=== PATIENT | female | born 1975 | race Two or more races ===

== ENCOUNTER 2017-06-28 04:51 | Emergency (ER) | payer OTHER ==
[~2017-06-28] VITALS: Ht 157.5 cm; Wt 66.0 kg
[2017-06-28] MEDS ORDERED: SODIUM CHLORIDE 0.9% 1,000 ML IV ONE (06:57)
[2017-06-28] MEDS ORDERED: ONDANSETRON HCL 4MG/2ML VIAL IV STA (06:57)
[2017-06-28] MEDS ORDERED: MORPHINE SULFATE 4 MG/ML CPJ (NOT FOR IM USE) IV STA (06:57)
[2017-06-28] MEDS ORDERED: DEXAMETHASONE 10MG/ML 1ML VIAL IV ONE (07:00)
[2017-06-28 08:55] VITALS: BP 121/66
== END 2017-06-28 08:55 | disposition home or self-care (01) ==
LOC: ER 04:52
DX: R51 Headache (principal); I10 Essential (primary) hypertension; R11.0 Nausea
CPT/HCPCS: 81025; 96361; 96374; 96375; 99284; J1100; J2270; J2405; Z7610; J7030

== ENCOUNTER 2018-11-07 23:11 | Emergency (ER) | payer OTHER ==
[~2018-11-07] VITALS: Ht 157.5 cm; Wt 70.0 kg
[2018-11-08 04:38] LABS: BASOPHILS % 1.1 % (0.0-2.0); EOSINOPHILS % 7.2 % (0.0-5.0); HEMATOCRIT. 41.6 % (36.0-48.0); HEMOGLOBIN. 14.4 g/dL (12.0-16.0); LYMPHOCYTES % 12.4 % (20.0-50.0); MEAN CORPUSCULAR VOLUME 86.7 fL (81.0-99.0); MEAN PLATELET VOLUME 8.5 fl (7.4-10.4); MONOCYTES % 7.2 % (2.0-8.0); NEUTROPHILS % 72.1 % (40.0-76.0); PLATELET 263 x1000/uL (130-400); RED CELL DISTRIBUTION WIDTH 13.2 % (11.6-14.6)
[2018-11-08 04:43] LABS: INR 1.1; PROTHROMBIN TIME 10.7 sec (9.1-11.1)
[2018-11-08 04:45] LABS: CHLORIDE 107 mEq/L (98-107)
[2018-11-08 05:16] VITALS: BP 114/71
== END 2018-11-08 06:15 | disposition home or self-care (01) ==
LOC: ER 23:11
DX: R07.89 Other chest pain (principal); F41.9 Anxiety disorder, unspecified; Z98.890 Other specified postprocedural states
CPT/HCPCS: 36415; 71045; 93005; 99284

== ENCOUNTER 2021-01-10 22:49 | Emergency (ER) | payer OTHER ==
[~2021-01-10] VITALS: Ht 160 cm; Wt 75.0 kg
[2021-01-10] MEDS ORDERED: ONDANSETRON HCL 4MG/2ML INJ IV STA (23:11)
[2021-01-10] MEDS ORDERED: KETOROLAC 30MG/ML VIAL IV STA (23:11)
[2021-01-10] MEDS ORDERED: SODIUM CHLORIDE 0.9% 1,000 ML IV ONE (23:15)
[2021-01-10] MEDS ORDERED: MECLIZINE 25MG TABLET PO ONE (23:15)
[2021-01-11 00:06] LABS: CHLORIDE 106 mEq/L (98-107); HEMATOCRIT. 44.2 % (36.0-48.0); HEMOGLOBIN. 14.7 g/dL (12.0-16.0); MEAN CORPUSCULAR VOLUME 87.5 fL (81.0-99.0); MEAN PLATELET VOLUME 8.5 fl (7.4-10.4); PLATELET 307 x1000/uL (130-400); RED BLOOD CELL COUNT 5.06 mill/uL (4.2-5.4); RED CELL DISTRIBUTION WIDTH 13.3 % (11.6-14.6)
[2021-01-11 00:36] LABS: HCG SCREEN NEGATIVE
[2021-01-11 03:03] VITALS: BP 134/76
[2021-01-11 04:59] LABS: PLATELET ESTIMATE NORMAL
== END 2021-01-11 03:05 | disposition home or self-care (01) ==
LOC: ER 23:18
DX: R07.89 Other chest pain (principal); E86.0 Dehydration; R42 Dizziness and giddiness; R11.10 Vomiting, unspecified
CPT/HCPCS: 36415; 70450; 71045; 72125; 80053; 83880; 84484; 84703; 85025; 93005; 96361; 96374; 96375; 99285; J1885; J2405; J7030; J8597; Z7610

== ENCOUNTER 2022-01-25 18:29 | Emergency (ER) | payer OTHER ==
[~2022-01-25] VITALS: Ht 160 cm; Wt 73.0 kg
[2022-01-25] MEDS ORDERED: MAGNESIUM/ALUMINUM HYDROXIDE/SIMETHICONE 30ML UDC PO STA (21:21)
[2022-01-25] MEDS ORDERED: KETOROLAC 60MG/2ML VIAL IM STA (21:21)
[2022-01-25] MEDS ORDERED: VISCOUS LIDOCAINE 2% 15 ML UDC PO STA (21:21)
[2022-01-25 21:45] LABS: BASOPHILS % 0.8 % (0.0-2.0); EOSINOPHILS % 6.6 % (0.0-5.0); HEMATOCRIT. 41.8 % (36.0-48.0); LYMPHOCYTES % 18.8 % (20.0-50.0); MEAN CORPUSCULAR HEMOGLOBIN 28.7 pg (28.0-32.0); MEAN CORPUSCULAR VOLUME 85.6 fL (81.0-99.0); MEAN PLATELET VOLUME 7.9 fl (7.4-10.4); MONOCYTES % 10.4 % (2.0-8.0); NEUTROPHILS % 63.4 % (40.0-76.0); PLATELET 285 x1000/uL (130-400); RED BLOOD CELL COUNT 4.89 mill/uL (4.2-5.4); RED CELL DISTRIBUTION WIDTH 13.2 % (11.6-14.6)
[2022-01-25 21:48] LABS: CHLORIDE 107 mEq/L (98-107)
[2022-01-25 21:50] LABS: CLARITY URINE CLOUDY (CLEAR); COLOR URINE YELLOW (YELLOW); KETONES URINE NEGATIVE (NEGATIVE); LEUKOCYTE ESTERASE URINE NEGATIVE (NEGATIVE); NITRITE URINE NEGATIVE (NEGATIVE); OCCULT BLOOD URINE 2+ (NEGATIVE); PROTEIN URINE NEGATIVE (NEGATIVE); SPECIFIC GRAVITY URINE 1.013 (1.005-1.030); UROBILINOGEN URINE 0.2 E.U./dL (0.2-1.0)
[2022-01-26 00:30] VITALS: BP 128/78
== END 2022-01-26 00:30 | disposition home or self-care (01) ==
LOC: ER 18:29
DX: N20.0 Calculus of kidney (principal); R91.1 Solitary pulmonary nodule; M54.9 Dorsalgia, unspecified
CPT/HCPCS: 36415; 74176; 80053; 81003; 83690; 85025; 96372; 99284; J1885